=== PATIENT | female | born 1950 | race Hispanic/Latino ===

== ENCOUNTER 2017-04-16 00:57 | Emergency (ER) | payer OTHER, MEDICARE ==
[2017-04-16 01:22] VITALS: BP 137/77; PULSE 77; RESP 17; TEMP 97.3; O2SAT 95
--- NOTE | 2017-04-16 01:31 | ED PDOC ---
HPI: General Adult Time Seen by Provider: 04/16/17 01:17 Chief Complaint (Nursing): Back Pain History Per: Patient Additional Complaint(s): Pt. states yesterday at 2345 while at work she attempted to sit down but the chair collapsed causing her to fall backwards injuring the middle of her upper back. Reports that she did strike the back of her head against the tiled floor but did not lose consciousness nor did she ever develop a headache. Pt. states she took a Tylenol at 0000 without much relief. Denies neck pain, lower back pain, incontinence, chest pain, abdominal pain, headache, LOC, N/V, anticoagulant use. Past Medical History Reviewed: Historical Data, Nursing Documentation, Vital Signs Vital Signs: Last Vital Signs Temp 97.3 F L 04/16/17 01:10 Pulse 77 04/16/17 01:10 Resp 17 04/16/17 01:10 BP 137/77 04/16/17 01:10 Pulse Ox 95 04/16/17 03:08 - Medical History PMH: Asthma, COPD, Gastritis, HTN, Hypothyroidism - Family History Family History: States: Unknown Family Hx - Immunization History Hx Tetanus Toxoid Vaccination: No Hx Influenza Vaccination: Yes Hx Pneumococcal Vaccination: No - Home Medications Home Medications: Ambulatory Orders Medication Instructions Recorded Advair Diskus 100/50 1 puff IH DAILY 04/26/15 Levothyroxine Sodium [Levoxyl] 25 mcg PO DAILY 04/26/15 Lisinopril 20 mg PO DAILY 04/26/15 Omeprazole 20 mg PO DAILY 04/26/15 Cyclobenzaprine [Cyclobenzaprine 10 mg PO Q8 PRN #15 tab 04/16/17 HCl] - Allergies Allergies/Adverse Reactions: Allergies Allergy/AdvReac Type Severity Reaction Status Date / Time amoxicillin Allergy Mild hives Verified 04/16/17 01:24 azithromycin Allergy Mild hives Verified 04/16/17 01:25 clavulanic acid Allergy Mild hives Verified 04/16/17 01:25 [From Augmentin] Review of Systems ROS Statement: Except As Marked, All Systems Reviewed And Found Negative Musculoskeletal: Positive for: Back Pain Physical Exam - Physical Exam Appears: Positive for: Well, Non-toxic, No Acute Distress Head Exam: Positive for: ATRAUMATIC, NORMAL INSPECTION, NORMOCEPHALIC Skin: Positive for: Normal Color, Warm. Negative for: Rash Eye Exam: Positive for: EOMI, Normal appearance, PERRL ENT: Positive for: Normal ENT Inspection, TM Is/Are (no hemotympanum b/l). Negative for: Pharyngeal Erythema, Tonsillar Exudate, Tonsillar Swelling Neck: Positive for: Normal, Painless ROM Cardiovascular/Chest: Positive for: Regular Rate, Rhythm, Chest Non Tender Respiratory: Positive for: CNT, Normal Breath Sounds Gastrointestinal/Abdominal: Positive for: Normal Exam, Soft. Negative for: Tenderness Back: Positive for: Normal Inspection, Muscle Spasm (b/l thoracic area). Negative for: L CVA Tenderness, R CVA Tenderness, Vertebral Tenderness ( including c-spine) Extremity: Positive for: Normal ROM Neurologic/Psych: Positive for: Alert, Oriented, Gait (steady and unassisted). Negative for: Aphasia, Facial Droop - ECG O2 Sat by Pulse Oximetry: 95 - Radiology X-Ray: Interpreted by Me (Thoracic spine x-ray) X-Ray Interpretation: No Acute Disease - Progress ED Course And Treament: Thoracic spine x-ray ordered. Re-evaluation Time: 03:06 (Denies headache. Informed of x-ray results. Instructed to continue taking Tylenol along with prescribed Flexeril. ) Condition: Re-examined Disposition - Clinical Impression Clinical Impression: Head injury, Back pain - Patient ED Disposition Is Patient to be Admitted: No - Disposition Referrals: Samuel Yoder MD [Primary Care Provider] - Disposition: Routine/Home Disposition Time: 03:06 Condition: STABLE Additional Instructions: Follow up with Dr. Yoder for further evaluation. Prescriptions: Cyclobenzaprine [Cyclobenzaprine HCl] 10 mg PO Q8 PRN #15 tab PRN Reason: Muscle Spasm Instructions: Head Injury (ED), Back Pain (ED) Forms: [facility] ED School/Work Excuse
--- NOTE | 2017-04-16 11:03 | RAD ---
HISTORY: trauma COMPARISON: Comparison made with CT scan chest dated 01/16/2010 FINDINGS: BONES: No definitive radiographic evidence of acute compression fractures no retropulsed fragments. The vertebral bodies exhibit relatively normal stature. There is mild diffuse demineralization. . There is a very subtle dextroscoliosis centered at the T11-T12 level. DISC SPACES: Multilevel degenerative spondylosis with varying degrees of anterior disc space narrowing endplate eburnation and small anterolateral osteophyte formation. SOFT TISSUES: No significant paraspinal soft tissue abnormality OTHER FINDINGS: Note again made of multiple calcified mediastinal lymph nodes consistent with prior exposure to granulomatous disease process. IMPRESSION: No evidence of acute fractures. Mild multilevel degenerative spondylosis as described. Slight increase kyphosis. See above discussion for additional findings and details.
== END 2017-04-16 03:20 | disposition home or self-care (01) ==
LOC: H.ER 00:57
DX: S09.90XA Unspecified injury of head, initial encounter (principal); M54.9 Dorsalgia, unspecified; W19.XXXA Unspecified fall, initial encounter; Y99.0 Civilian activity done for income or pay; E03.9 Hypothyroidism, unspecified; I10 Essential (primary) hypertension; Z88.0 Allergy status to penicillin

== ENCOUNTER 2019-02-04 12:22 | Emergency (ER) | payer MEDICARE ==
[2019-02-04 12:32] VITALS: RESP 16
--- NOTE | 2019-02-04 13:45 | ED PDOC ---
HPI: Abdomen Time Seen by Provider: 02/04/19 12:35 Chief Complaint (Nursing): GI Problem Chief Complaint (Provider): GI Problem History Per: Patient History/Exam Limitations: no limitations Onset/Duration Of Symptoms: Days Current Symptoms Are (Timing): Still Present Additional Complaint(s): 68 y/o female with a PMHx of HTN and CAD presents to the ED for evaluation of constipation. Patient notes her last bowel movement was on . Patient has a history of intermittent constipation. Patient reports of using a fleet enema today with no relief. Patient states constipation is associated with an abdominal cramping pain. Otherwise, patient denies black or bloody stool, nausea, vomiting and fever. Patient reports of typically taking medications everyday to keep her regular and takes a fleet enema when she has increased difficulty but states it didn't work today thus prompting today's visit. PMD: Pamela Boykin Past Medical History Reviewed: Historical Data, Nursing Documentation, Vital Signs Vital Signs: Last Vital Signs Temp 98.4 F 02/04/19 12:29 Pulse 112 H 02/04/19 12:29 Resp 16 02/04/19 12:29 BP 128/84 02/04/19 12:29 Pulse Ox 96 02/04/19 12:29 Primary Care Provider: Pamela Boykin - Medical History PMH: Asthma, CAD, COPD, Gastritis, HTN, Hypothyroidism - Surgical History Other surgeries: Hysterectomy and breast biopsy - Family History Family History: States: No Known Family Hx - Immunization History Hx Tetanus Toxoid Vaccination: No Hx Influenza Vaccination: Yes Hx Pneumococcal Vaccination: No - Home Medications Home Medications: Ambulatory Orders Medication Instructions Recorded Advair Diskus 100/50 1 puff IH DAILY 04/26/15 Levothyroxine Sodium [Levoxyl] 25 mcg PO DAILY 04/26/15 Lisinopril 20 mg PO DAILY 04/26/15 Omeprazole 20 mg PO DAILY 04/26/15 Cyclobenzaprine [Cyclobenzaprine 10 mg PO Q8 PRN #15 tab 04/16/17 HCl] Polyethylene Glycol 3350 [Miralax] 17 gm PO DAILY PRN #1 bottle 02/04/19 - Allergies Allergies/Adverse Reactions: Allergies Allergy/AdvReac Type Severity Reaction Status Date / Time amoxicillin Allergy Mild hives Verified 02/04/19 12:29 azithromycin Allergy Mild hives Verified 02/04/19 12:29 clavulanic acid Allergy Mild hives Verified 02/04/19 12:29 [From Augmentin] Review of Systems ROS Statement: Except As Marked, All Systems Reviewed And Found Negative Constitutional: Negative for: Fever Gastrointestinal: Positive for: Abdominal Pain, Constipation. Negative for: Nausea, Vomiting, Melena, Hematochezia Physical Exam - Reviewed Nursing Documentation Reviewed: Yes Vital Signs Reviewed: Yes - Physical Exam Appears: Positive for: Non-toxic, In Acute Distress (mild, painful) Head Exam: Positive for: ATRAUMATIC, NORMOCEPHALIC Skin: Positive for: Warm, Dry Respiratory: Positive for: Normal Breath Sounds. Negative for: Respiratory Distress Gastrointestinal/Abdominal: Positive for: Soft. Negative for: Tenderness, Mass, Guarding, Rebound, Other (Tyson's sign and McBurney's Point Tenderness) Back: Positive for: Normal Inspection. Negative for: L CVA Tenderness, R CVA Tenderness Rectal: Positive for: Rectal Tone Is: (normal), Other (Palpable stool at the m ost proximal area of her rectum, otherwise rectal volt is empty. Chaperoned by DEIRDRE Garcia) Lymphatic: Negative for: Adenopathy Neurological/Psych: Positive for: Awake, Alert. Negative for: Motor/Sensory Deficits - ECG O2 Sat by Pulse Oximetry: 96 (RA) Pulse Ox Interpretation: Normal Medical Decision Making Medical Decision Making: Time: 1243 Impression: Constipation Plan: -- Enema - Tap Water and Soap ONCE 1445 Pt had large bowel movement and feels much better after enema Scribe Attestation: Documented by Renato Johnson, acting as a scribe Quinten Magana MD. Provider Scribe Attestation: All medical record entries made by the Scribe were at my direction and personally dictated by me. I have reviewed the chart and agree that the record accurately reflects my personal performance of the history, physical exam, medical decision making, and the department course for this patient. I have also personally directed, reviewed, and agree with the discharge instructions and disposition. Disposition - Clinical Impression Clinical Impression: Constipation - Disposition Referrals: Pamela Boykin MD [Family Provider] - Disposition: Routine/Home Disposition Time: 14:57 Condition: STABLE Prescriptions: Polyethylene Glycol 3350 [Miralax] 17 gm PO DAILY PRN #1 bottle PRN Reason: Constipation Instructions: Constipation, Adult (DC)
[2019-02-04 15:05] VITALS: BP 112/68; PULSE 109; TEMP 98.3
[2019-02-06 15:34] VITALS: O2SAT 96
== END 2019-02-04 15:03 | disposition home or self-care (01) ==
LOC: H.ER 12:22
DX: K59.00 Constipation, unspecified (principal)